=== PATIENT | female | born 1965 | race Caucasian/White ===

== ENCOUNTER 2017-12-22 08:07 | Inpatient (IN) | payer MEDICARE, MEDICAID ==
[2017-12-22] MEDS ORDERED: LORAZEPAM INJ 2 MG/1 ML VIAL IV ONE ×2 (08:27→13:47)
[2017-12-22] MEDS ORDERED: NORMAL SALINE 1000 ML 1,000 ML IV ONE (08:29)
[2017-12-22 08:53] LABS: ABSOLUTE MONOCYTES (AUTO) 0.4 10^3/uL (0.1-1.4); ABSOLUTE NEUT (AUTO) 11.3 10^3/uL (1.7-8.2); BASOPHILS % (AUTO) 0.2 % (0-2); HEMATOCRIT 35.5 % (36.0-47.0); HEMOGLOBIN 12.2 g/dL (12.0-15.5); MEAN CORPUSCULAR HEMOGLOBIN 38.2 pg (27.0-33.4); MEAN CORPUSCULAR HGB CONC 34.4 g/dL (32.0-36.0); PLATELET COUNT 170 10^3/uL (150-450); RED BLOOD COUNT 3.19 10^6/uL (3.72-5.28); RED CELL DISTRIBUTION WIDTH 16.1 % (11.5-14.0); SEGMENTED NEUTROPHILS % (AUTO) 88.8 % (42-78); TOTAL CELLS COUNTED % (AUTO) 100 %; WHITE BLOOD COUNT 12.7 10^3/uL (4.0-10.5)
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
[2017-12-22 09:02] LABS: MEAN CORPUSCULAR VOLUME 111 fl (80-97)
[2017-12-22 09:13] LABS: ANISOCYTOSIS 1+; OVALOCYTES 2+; PLATELET COMMENT ADEQUATE; POIKILOCYTOSIS 2+; POLYCHROMASIA 1+; TOXIC GRANULATION SLIGHT
[2017-12-22 09:33] LABS: ALANINE AMINOTRANSFERASE 18 U/L (9-52); ALBUMIN 4.6 g/dL (3.5-5.0); ALKALINE PHOSPHATASE 95 U/L (38-126); ASPARTATE AMINO TRANSFERASE 31 U/L (14-36); BILIRUBIN,DIRECT 0.9 mg/dL (0.0-0.4); BILIRUBIN,TOTAL 1.4 mg/dL (0.2-1.3); BLOOD UREA NITROGEN 23 mg/dL (7-20); CALCIUM 9.7 mg/dL (8.4-10.2); CARBON DIOXIDE 22 mmol/L (22-30); CHLORIDE 95 mmol/L (98-107); GLUCOSE 91 mg/dL (75-110); POTASSIUM 4.2 mmol/L (3.6-5.0); TOTAL PROTEIN 7.9 g/dL (6.3-8.2)
[2017-12-22 09:36] LABS: ACETAMINOPHEN < 10 ug/mL (10-30); ALCOHOL < 10 mg/dL (NONE DETECTED); SALICYLATE < 1.0 mg/dL (2.0-20.0)
[2017-12-22 09:39] LABS: ANION GAP 21 (5-19)
--- NOTE | 2017-12-22 09:43 | RADIOLOGY REPORT (SQ) ---
EXAM DESCRIPTION: CHEST SINGLE VIEW COMPLETED DATE/TIME: 12/22/2017 9:34 am REASON FOR STUDY: cough COMPARISON: None. EXAM PARAMETERS: NUMBER OF VIEWS: One view. TECHNIQUE: Single frontal radiographic view of the chest acquired. RADIATION DOSE: NA LIMITATIONS: None. FINDINGS: LUNGS AND PLEURA: No opacities, masses or pneumothorax. No pleural effusion. MEDIASTINUM AND HILAR STRUCTURES: No masses. Contour normal. HEART AND VASCULAR STRUCTURES: Heart normal in size. Normal vasculature. BONES: No acute findings. HARDWARE: None in the chest. OTHER: No other significant finding. IMPRESSION: NO ACUTE RADIOGRAPHIC FINDING IN THE CHEST. TECHNICAL DOCUMENTATION: JOB ID: [id number]- All Rights Reserved Reading location - IP/workstation name: [email or web address]
[2017-12-22] MEDS: NORMAL SALINE 1000 ML 1,000 ML IV PRN ×2 (11:25→12:57)
[2017-12-22 12:41] LABS: PATH REVIEW PATHOLOGIST REVIEWED
[2017-12-22] MEDS ORDERED: HALOPERIDOL LACTATE INJ 5 MG/1 ML VIAL IV ONE (13:48)
[2017-12-22] MEDS ORDERED: DIAZEPAM INJ 10 MG/2 ML DISP.SYRIN IV ONE (14:20)
--- NOTE | 2017-12-22 15:32 | EKG REPORT ---
SEVERITY:- BORDERLINE ECG - SINUS TACHYCARDIA BORDERLINE T ABNORMALITIES, INFERIOR LEADS BORDERLINE PROLONGED QT INTERVAL : Confirmed by: Melita Garcia MD 22-Dec-2017 15:31:50
[2017-12-22] MEDS ORDERED: ALBUTEROL SULFATE 0.083% NEB 2.5 MG/3 ML AMPUL NEB PRN (17:06)
[2017-12-22] MEDS ORDERED: HALOPERIDOL LACTATE INJ 5 MG/1 ML VIAL IV PRN (17:17)
[2017-12-22] MEDS: NORMAL SALINE 1000 ML 1,000 ML with POTASSIUM CHLORIDE 20 MEQ, MAGNESIUM SULFATE 8 MEQ,... IV SCH ×5 (17:45)
[2017-12-22] MEDS: LORAZEPAM INJ 2 MG/1 ML VIAL IV PRN (17:47)
--- NOTE | 2017-12-22 18:04 | PSYCHOLOGICAL NOTE ---
Psych Note - Psych Note Psych Note: Chart review at 1111. Went to attempt IPAD tele-consult at 1450 but patient sedated from Valium 10MG that had recently been administered to address psychosis. Reason for Consult: Confusion, A/V Hallucinations, Paranoia, tearful Contact Permissions: None at this time. Patient is a 52 year old female who presented to the ED today via EMS after LE involvement for mental health evaluation due to history of Depression/Anxiety ( confused, A/V hallucinations, paranoia, tearful). Chart review revealed many of her labs (both hematology and chemistry) were off/ all over the range of low to high. She was administered Sodium Chloride and Ativan 2MG IV at 0840. She was last seen by the [facility] Behavioral Health team on 03/28/16 for psychiatric problem. During that visit patient described herself having "a temper tantrum" after finding out her was cheating on her for 14 years with a woman when she had thought it was with a man. She had known for a couple weeks and then drank alcohol the night before this March 2016 visit. She was diagnosed with Alcohol Intoxication (her Serum Alcohol Level upon arrival to ED during that visit was 279) at that time and nothing else due to not enough information to diagnosis anything else. Today [facility] Behavioral Health Team Leak Hunter spoke to attending ED Physician who requested IVC and identified patient was being admitted due to not knowing if her presenting behavior is a result of psychosis/galilea or DTs from alcohol withdrawal. He noted patient was able to have a conversation and interact with him however she was carrying on a conversation with someone who was not in the room. At 1450 went to conduct evaluation with patient however she was sedated as a result of Valium 10MG administration to address psychosis and help patient to rest. Serum Alcohol Level for this visit was negative which could indicate withdrawal. There is limited history so unsure about alcohol use. Diagnosis: 298.9 (F29) Unspecified Schizophrenia Spectrum and Other Psychotic Disorder ( unspecified psychosis) R/O 291.0 (F10.232) Alcohol Withdrawal, With Perceptual Disturbances Medication recommendations made by the psychiatric medical provider, Dr. Emilio MD., includes: Effexor 37.5MG twice a day for depression/anxiety/curb desire for alcohol Haldol 5MG twice a day for psychosis Cogentin 1MG daily to curb tremor side effects often associated with antipsychotic medications Depakote 250MG twice a day for mood stabilization Buspar 10MG twice a day for depression/anxiety/sleep Impression/Plan: Per attending ED Physician IVC patient given unsure if patient has psychosis/galilea as symptom of MH disorder or if it is related to DTs from alcohol withdrawal. Either way she has AMS which inhibits her insight, judgment and impulse control. Behavioral Health thinks more the latter scenario. Medications have been recommended to address alcohol withdrawal and DTs. Will track (via chart review and/or discussion with attending medical staff while patient is in psychosis, will do [id number] with patient when the psychosis clears) patient given she is an IVC. Consulted with Dr. Tinoco regarding the management and care of patient. ED Physician in agreement with recommendations.
[2017-12-23] MEDS: HEPARIN SOD (PORCINE) 5,000 UNIT/ML 1 ML SYRINGE SUBCUT SCH ×2 (00:26→06:36)
[2017-12-23] MEDS: DEXTROSE 5%-LACTATED RINGERS 1,000 ML IV PRN ×2 (04:23→15:00)
[2017-12-23 06:02] LABS: ABSOLUTE LYMPHOCYTES (AUTO) 1.5 10^3/uL (0.5-4.7); ABSOLUTE MONOCYTES (AUTO) 0.2 10^3/uL (0.1-1.4); ABSOLUTE NEUT (AUTO) 2.6 10^3/uL (1.7-8.2); BASOPHILS % (AUTO) 0.6 % (0-2); EOSINOPHILS % (AUTO) 1.1 % (0-6); INTERNATIONAL RATION (INR) 1.01; LYMPHOCYTES % (AUTO) 33.9 % (13-45); MEAN CORPUSCULAR HEMOGLOBIN 38.8 pg (27.0-33.4); MEAN CORPUSCULAR VOLUME 111 fl (80-97); MONOCYTES % (AUTO) 4.7 % (3-13); PROTHROMBIN TIME 13.8 SEC (11.4-15.4); RED BLOOD COUNT 2.44 10^6/uL (3.72-5.28); RED CELL DISTRIBUTION WIDTH 15.9 % (11.5-14.0); SEGMENTED NEUTROPHILS % (AUTO) 59.7 % (42-78); TOTAL CELLS COUNTED % (AUTO) 100 %; WHITE BLOOD COUNT 4.3 10^3/uL (4.0-10.5)
[2017-12-23 06:23] LABS: HEMOGLOBIN 9.5 g/dL (12.0-15.5)
[2017-12-23 06:25] LABS: ANISOCYTOSIS SLIGHT
[2017-12-23 06:26] LABS: PLATELET COUNT 90 10^3/uL (150-450)
[2017-12-23 06:28] LABS: PLATELET COMMENT DECREASED
[2017-12-23 06:29] LABS: ALANINE AMINOTRANSFERASE 21 U/L (9-52); ALBUMIN 2.8 g/dL (3.5-5.0); ALKALINE PHOSPHATASE 57 U/L (38-126); ANION GAP 9 (5-19); ASPARTATE AMINO TRANSFERASE 25 U/L (14-36); BILIRUBIN,DIRECT 0.6 mg/dL (0.0-0.4); BILIRUBIN,TOTAL 0.6 mg/dL (0.2-1.3); BLOOD UREA NITROGEN 18 mg/dL (7-20); CALCIUM 7.9 mg/dL (8.4-10.2); CARBON DIOXIDE 23 mmol/L (22-30); CHLORIDE 107 mmol/L (98-107); GLUCOSE 86 mg/dL (75-110); SODIUM 138.5 mmol/L (137-145); TOTAL PROTEIN 5.3 g/dL (6.3-8.2)
[2017-12-23] MEDS: LANSOPRAZOLE 30 MG TAB.RAP.DR PO SCH ×2 (06:36→17:39)
[2017-12-23] MEDS: LORAZEPAM INJ 2 MG/1 ML VIAL IV PRN (09:47)
[2017-12-23] MEDS: POTASSI CL 20 MEQ/50 ML RIDER 20 MEQ/50 ML RTUPB IV SCH ×3 (09:48→15:00)
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
[2017-12-23] MEDS: ACETAMINOPHEN 325 MG TABLET PO PRN (11:39)
[2017-12-23 14:04] LABS: FREE T3 3.24 pg/mL (2.77-5.27); FREE T4 (FREE THYROXINE) 1.39 ng/dL (0.78-2.19)
[2017-12-23 14:18] LABS: THYROID STIMULATING HORMONE 1.22 uIU/mL (0.47-4.68)
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
--- NOTE | 2017-12-23 17:14 | PDOC PROGRESS REPORT ---
Subjective Progress Note for:: 12/23/17 Subjective:: Although the patient is somewhat more calm, she continues to resist my examination, but then she falls back to sleep. Reason For Visit: ETOH WITHDRAWAL,AND DELIRIUM,NICKOLAS Physical Exam Vital Signs: Temp Pulse Resp BP Pulse Ox 98.6 F 101 H 15 134/84 H 96 12/23/17 01:03 12/23/17 14:00 12/23/17 01:03 12/23/17 01:03 12/23/17 01:03 Intake & Output 12/22/17 12/23/17 12/24/17 06:59 06:59 06:59 Intake Total 2022 1080 Balance 2022 1080 Weight 60.4 kg General appearance: PRESENT: mild distress, thin Head exam: PRESENT: atraumatic, normocephalic Neck exam: ABSENT: JVD, meningismus, thyromegaly, tracheal deviation Respiratory exam: PRESENT: other - No increased work of breathing.. ABSENT: rales, rhonchi, wheezes Cardiovascular exam: PRESENT: RRR, other - No lateral PMI. No thrills.. ABSENT : gallop, rubs, systolic murmur Pulses: PRESENT: other - Diminished distal pulses. GI/Abdominal exam: PRESENT: normal bowel sounds, soft. ABSENT: distended, hernia, mass, organolmegaly, tenderness Extremities exam: ABSENT: clubbing, full ROM, tenderness Musculoskeletal exam: PRESENT: normal inspection. ABSENT: deformity, dislocation, tenderness Neurological exam: PRESENT: other - Not verbally interactive. Does not follow commands. Resists examination. Psychiatric exam: PRESENT: agitated, anxious Skin exam: PRESENT: dry, intact, warm Results Laboratory Results: 12/23/17 05:39 12/23/17 05:39 12/23/17 12/23/17 12/23/17 05:39 05:39 05:39 WBC 4.3 RBC 2.44 L Hgb 9.5 L D Hct 27.0 L MCV 111 H MCH 38.8 H MCHC 35.0 RDW 15.9 H Plt Count 90 L Seg Neutrophils % 59.7 Lymphocytes % 33.9 Monocytes % 4.7 Eosinophils % 1.1 Basophils % 0.6 Absolute Neutrophils 2.6 Absolute Lymphocytes 1.5 Absolute Monocytes 0.2 Absolute Eosinophils 0.0 Absolute Basophils 0.0 Sodium 138.5 Potassium 3.0 L* D Chloride 107 Carbon Dioxide 23 Anion Gap 9 BUN 18 Creatinine 1.23 Est GFR ( Amer) 56 L Est GFR (Non-Af Amer) 46 L Glucose 86 Calcium 7.9 L Phosphorus 3.0 Magnesium 1.5 L Total Bilirubin 0.6 AST 25 ALT 21 Alkaline Phosphatase 57 Total Protein 5.3 L Albumin 2.8 L TSH 1.22 Free T4 1.39 Free T3 pg/mL 3.24 12/22/17 12/22/17 12/23/17 17:30 23:37 05:39 Troponin I < 0.012 < 0.012 < 0.012 12/22/17 12/22/17 12/22/17 08:25 08:25 08:25 WBC 12.7 H RBC 3.19 L Hgb 12.2 Hct 35.5 L MCV 111 H MCH 38.2 H MCHC 34.4 RDW 16.1 H Plt Count 170 Seg Neutrophils % 88.8 H Lymphocytes % 8.0 L Monocytes % 3.0 Eosinophils % 0.0 Basophils % 0.2 Absolute Neutrophils 11.3 H Absolute Lymphocytes 1.0 Absolute Monocytes 0.4 Absolute Eosinophils 0.0 Absolute Basophils 0.0 Toxic Granulation SLIGHT Platelet Comment ADEQUATE Polychromasia 1+ Poikilocytosis 2+ Anisocytosis 1+ Macrocytosis 2+ Ovalocytes 2+ Sodium 138.0 Potassium 4.2 Chloride 95 L Carbon Dioxide 22 Anion Gap 21 H BUN 23 H Creatinine 2.90 H Est GFR ( Amer) 21 L Est GFR (Non-Af Amer) 17 L Glucose 91 Calcium 9.7 Phosphorus Magnesium Total Bilirubin 1.4 H Direct Bilirubin 0.9 H AST 31 ALT 18 Alkaline Phosphatase 95 Creatine Kinase 174 H Troponin I Total Protein 7.9 Albumin 4.6 Salicylates < 1.0 L Acetaminophen < 10 L Serum Alcohol < 10 12/22/17 12/22/17 12/22/17 08:25 17:30 23:37 WBC RBC Hgb Hct MCV MCH MCHC RDW Plt Count Seg Neutrophils % Lymphocytes % Monocytes % Eosinophils % Basophils % Absolute Neutrophils Absolute Lymphocytes Absolute Monocytes Absolute Eosinophils Absolute Basophils Toxic Granulation Platelet Comment Polychromasia Poikilocytosis Anisocytosis Macrocytosis Ovalocytes Sodium Potassium Chloride Carbon Dioxide Anion Gap BUN Creatinine Est GFR ( Amer) Est GFR (Non-Af Amer) Glucose Calcium Phosphorus Magnesium Total Bilirubin Direct Bilirubin AST ALT Alkaline Phosphatase Creatine Kinase Troponin I < 0.012 < 0.012 < 0.012 Total Protein Albumin Salicylates Acetaminophen Serum Alcohol 12/23/17 12/23/17 12/23/17 05:39 05:39 05:39 WBC 4.3 RBC 2.44 L Hgb 9.5 L D Hct 27.0 L MCV 111 H MCH 38.8 H MCHC 35.0 RDW 15.9 H Plt Count 90 L Seg Neutrophils % 59.7 Lymphocytes % 33.9 Monocytes % 4.7 Eosinophils % 1.1 Basophils % 0.6 Absolute Neutrophils 2.6 Absolute Lymphocytes 1.5 Absolute Monocytes 0.2 Absolute Eosinophils 0.0 Absolute Basophils 0.0 Toxic Granulation Platelet Comment DECREASED Polychromasia Poikilocytosis Anisocytosis SLIGHT Macrocytosis 3+ Ovalocytes Sodium 138.5 Potassium 3.0 L* D Chloride 107 Carbon Dioxide 23 Anion Gap 9 BUN 18 Creatinine 1.23 Est GFR ( Amer) 56 L Est GFR (Non-Af Amer) 46 L Glucose 86 Calcium 7.9 L Phosphorus 3.0 Magnesium 1.5 L Total Bilirubin 0.6 Direct Bilirubin 0.6 H AST 25 ALT 21 Alkaline Phosphatase 57 Creatine Kinase Troponin I < 0.012 Total Protein 5.3 L Albumin 2.8 L Salicylates Acetaminophen Serum Alcohol Impressions: Chest X-Ray 12/22/17 08:27 IMPRESSION: NO ACUTE RADIOGRAPHIC FINDING IN THE CHEST. Assessment & Plan - Diagnosis (1) Psychosis Qualifiers: Psychosis type: delusional disorder Qualified Code(s): F22 - Delusional disorders Is this a current diagnosis for this admission?: Yes Plan: Mental health consult recommends initiation of Effexor, Haldol, Cogentin, Depakote and buspar. (2) Manic depressive disease manic phase Is this a current diagnosis for this admission?: Yes Plan: Mental health consult recommends initiation of Effexor, Haldol, Cogentin, Depakote and buspar. (3) Alcohol withdrawal delirium Is this a current diagnosis for this admission?: Yes Plan: CIWA protocol. Ativan prn. Antipsychotics. (4) NICKOLAS (acute kidney injury) Is this a current diagnosis for this admission?: Yes Plan: IV fluids, continue to monitor creatinine and electrolytes. Avoid nephrotoxic substances.
[2017-12-23] MEDS: BUSPIRONE HCL 10 MG TABLET PO SCH (17:39)
[2017-12-23] MEDS: NICOTINE 14 MG/24 HR PATCH.TD24 TD SCH (17:39)
[2017-12-23] MEDS: NORMAL SALINE 1000 ML 1,000 ML with POTASSIUM CHLORIDE 20 MEQ, MAGNESIUM SULFATE 8 MEQ,... IV SCH ×5 (17:39)
[2017-12-23 20:09] LABS: APPEARANCE,URINE SLIGHTLY-CLOUDY; BILIRUBIN,URINE NEGATIVE (NEGATIVE); COLOR,URINE YELLOW; GLUCOSE, URINE NEGATIVE (NEGATIVE); KETONES,URINE TRACE mg/dL (NEGATIVE); LEUKOCYTE ESTERASE,URINE LARGE (NEGATIVE); NITRITE,URINE POSITIVE (NEGATIVE); PROTEIN,URINE NEGATIVE (NEGATIVE); URINE SPECIFIC GRAVITY 1.016
[2017-12-23 20:21] LABS: URINE AMPHETAMINES SCREEN NEGATIVE; URINE BARBITURATES SCREEN NEGATIVE; URINE COCAINE SCREEN NEGATIVE; URINE MARIJUANA (THC) SCREEN NEGATIVE; URINE METHADONE SCREEN NEGATIVE; URINE PHENCYCLIDINE SCREEN NEGATIVE
[2017-12-23 20:26] LABS: URINE BENZODIAZEPINES SCREEN UNCONFIRMED POSITIVE
[2017-12-23] MEDS: BENZTROPINE MESYLATE 1 MG TABLET PO SCH (22:38)
[2017-12-23] MEDS: DIVALPROEX SODIUM 250 MG TAB.SR.24H PO SCH (22:38)
[2017-12-23] MEDS: HALOPERIDOL 5 MG TABLET PO SCH (22:38)
[2017-12-23] MEDS: VENLAFAXINE HCL 37.5 MG CAP.SR.24H PO SCH (22:38)
[2017-12-24] MEDS: LANSOPRAZOLE 30 MG TAB.RAP.DR PO SCH ×2 (05:47→17:44)
[2017-12-24] MEDS: DEXTROSE 5%-LACTATED RINGERS 1,000 ML IV PRN (05:51)
[2017-12-24] MEDS: HALOPERIDOL 5 MG TABLET PO SCH ×2 (09:29→21:24)
[2017-12-24] MEDS: BUSPIRONE HCL 10 MG TABLET PO SCH ×2 (09:29→21:24)
[2017-12-24] MEDS: NICOTINE 14 MG/24 HR PATCH.TD24 TD SCH (09:29)
[2017-12-24] MEDS: DIVALPROEX SODIUM 250 MG TAB.SR.24H PO SCH ×2 (09:29→21:24)
[2017-12-24] MEDS: VENLAFAXINE HCL 37.5 MG CAP.SR.24H PO SCH ×2 (09:29→21:24)
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
--- NOTE | 2017-12-24 15:27 | PDOC PROGRESS REPORT ---
Subjective Progress Note for:: 12/24/17 Subjective:: The patient is awake and alert. She is extremely cheerful today. Reason For Visit: ETOH WITHDRAWAL,AND DELIRIUM,NICKOLAS Physical Exam Vital Signs: Temp Pulse Resp BP Pulse Ox 98.7 F 99 16 101/66 97 12/24/17 11:25 12/24/17 14:00 12/24/17 13:20 12/24/17 11:25 12/24/17 13:20 Intake & Output 12/23/17 12/24/17 12/25/17 06:59 06:59 06:59 Intake Total 2022 2820 1023 Balance 2022 2820 1023 Weight 60.4 kg 62.4 kg General appearance: PRESENT: no acute distress, cooperative Respiratory exam: PRESENT: other - No increased work of breathing.. ABSENT: rales, rhonchi, wheezes Cardiovascular exam: PRESENT: RRR. ABSENT: gallop, rubs, systolic murmur Pulses: PRESENT: other - Distal pulses are diminished bilaterally. GI/Abdominal exam: PRESENT: normal bowel sounds, soft. ABSENT: distended, hernia, mass, organolmegaly, tenderness Extremities exam: PRESENT: clubbing, pedal edema. ABSENT: tenderness, +1 edema Musculoskeletal exam: PRESENT: normal inspection Neurological exam: PRESENT: alert, awake, oriented to person, oriented to place , oriented to time, oriented to situation, CN II-XII grossly intact Skin exam: PRESENT: dry, intact, warm Results Laboratory Results: 12/23/17 05:39 12/23/17 05:39 12/23/17 19:12 Urine Color YELLOW Urine Appearance SLIGHTLY-CLOUDY Urine pH 6.0 Ur Specific Amigo 1.016 Urine Protein NEGATIVE Urine Glucose (UA) NEGATIVE Urine Ketones TRACE H Urine Blood NEGATIVE Urine Nitrite POSITIVE H Ur Leukocyte Esterase LARGE H Urine WBC (Auto) 181 Urine RBC (Auto) 3 12/22/17 12/22/17 12/23/17 17:30 23:37 05:39 Troponin I < 0.012 < 0.012 < 0.012 Impressions: Chest X-Ray 12/22/17 08:27 IMPRESSION: NO ACUTE RADIOGRAPHIC FINDING IN THE CHEST. Assessment & Plan - Diagnosis (1) Psychosis Qualifiers: Psychosis type: delusional disorder Qualified Code(s): F22 - Delusional disorders Is this a current diagnosis for this admission?: Yes Plan: Mental health consult recommends initiation of Effexor, Haldol, Cogentin, Depakote and buspar. pt is more alert and in better spirits today, but remains delusional. (2) Manic depressive disease manic phase Is this a current diagnosis for this admission?: Yes Plan: Mental health consult recommends initiation of Effexor, Haldol, Cogentin, Depakote and buspar. The patient is in better spirits today, but remains delusional. (3) Alcohol withdrawal delirium Is this a current diagnosis for this admission?: Yes Plan: CIWA protocol. Ativan prn. Antipsychotics. (4) NICKOLAS (acute kidney injury) Is this a current diagnosis for this admission?: Yes Plan: IV fluids, continue to monitor creatinine and electrolytes. Avoid nephrotoxic substances. - Time Time Spent with patient: 25-34 minutes Medications reviewed and adjusted accordingly: Yes
[2017-12-24] MEDS: NORMAL SALINE 1000 ML 1,000 ML with POTASSIUM CHLORIDE 20 MEQ, MAGNESIUM SULFATE 8 MEQ,... IV SCH ×5 (17:44)
[2017-12-24] MEDS: BENZTROPINE MESYLATE 1 MG TABLET PO SCH (21:24)
[2017-12-24] MEDS: ACETAMINOPHEN 325 MG TABLET PO PRN (21:25)
[2017-12-25] MEDS: LANSOPRAZOLE 30 MG TAB.RAP.DR PO SCH ×2 (05:42→18:48)
[2017-12-25] MEDS: DEXTROSE 5%-LACTATED RINGERS 1,000 ML IV PRN ×2 (05:43→12:48)
[2017-12-25] MEDS: DIVALPROEX SODIUM 250 MG TAB.SR.24H PO SCH ×2 (09:36→21:56)
[2017-12-25] MEDS: BUSPIRONE HCL 10 MG TABLET PO SCH ×2 (09:36→21:55)
[2017-12-25] MEDS: NICOTINE 14 MG/24 HR PATCH.TD24 TD SCH (09:36)
[2017-12-25] MEDS: VENLAFAXINE HCL 37.5 MG CAP.SR.24H PO SCH ×2 (09:36→21:56)
[2017-12-25] MEDS: HALOPERIDOL 5 MG TABLET PO SCH ×2 (09:36→21:57)
--- NOTE | 2017-12-25 11:38 | PDOC PROGRESS REPORT ---
Subjective Progress Note for:: 12/25/17 Subjective:: Patient admitted with alcohol withdrawal, delirium as well as acute kidney injury. She is still me she is feeling better and ready to be discharged. She however has been seen by mental health and she is currently under involuntary commitment. She has been started on a bunch of antipsychotics and from all indications her mood seemed to have improved. Reason For Visit: ETOH WITHDRAWAL,AND DELIRIUM,NICKOLAS Physical Exam Vital Signs: Temp Pulse Resp BP Pulse Ox 98.4 F 79 18 133/86 H 98 12/25/17 07:50 12/25/17 07:50 12/25/17 07:50 12/25/17 07:50 12/25/17 07:50 Intake & Output 12/24/17 12/25/17 12/26/17 06:59 06:59 06:59 Intake Total 2820 2407 1023 Balance 2820 2407 1023 Weight 62.4 kg 65.9 kg General appearance: PRESENT: no acute distress, well-developed, well-nourished Head exam: PRESENT: atraumatic, normocephalic Eye exam: PRESENT: conjunctiva pink, EOMI, PERRLA. ABSENT: scleral icterus Ear exam: PRESENT: normal external ear exam Mouth exam: PRESENT: moist, tongue midline Neck exam: ABSENT: carotid bruit, JVD, lymphadenopathy, thyromegaly Respiratory exam: PRESENT: clear to auscultation americo. ABSENT: rales, rhonchi, wheezes Cardiovascular exam: PRESENT: RRR. ABSENT: diastolic murmur, rubs, systolic murmur Pulses: PRESENT: normal dorsalis pedis pul Vascular exam: PRESENT: normal capillary refill GI/Abdominal exam: PRESENT: normal bowel sounds, soft. ABSENT: distended, guarding, mass, organolmegaly, rebound, tenderness Rectal exam: PRESENT: deferred Extremities exam: PRESENT: full ROM. ABSENT: calf tenderness, clubbing, pedal edema Neurological exam: PRESENT: alert, awake, oriented to person, oriented to place , oriented to time, oriented to situation, CN II-XII grossly intact. ABSENT: motor sensory deficit Psychiatric exam: PRESENT: appropriate affect, normal mood Skin exam: PRESENT: dry, intact, warm. ABSENT: cyanosis, rash Results Laboratory Results: 12/23/17 05:39 12/23/17 05:39 12/22/17 12/22/17 12/23/17 17:30 23:37 05:39 Troponin I < 0.012 < 0.012 < 0.012 Impressions: Chest X-Ray 12/22/17 08:27 IMPRESSION: NO ACUTE RADIOGRAPHIC FINDING IN THE CHEST. Assessment & Plan - Time Time Spent with patient: 15-24 minutes Medications reviewed and adjusted accordingly: Yes Anticipated discharge: Other - To be determined - Plan Summary Plan Summary: Psychosis patient is alert and awake at the time of my exam but remains under involuntary commitment. Will have psych follow-up reevaluate and decide on further management. 2. Manic phase of manic depressive disorder. Patient is currently on Effexor, Haldol, Cogentin, Depakote and BuSpar. 3. Alcohol withdrawal delirium and sella protocol 4. Acute kidney injury this is resolved 5. Hypokalemia and high poor magnesium air I will recheck labs and treat as needed 6. 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 Will check B12, folic acid as well as iron stores. Looking back at the computer records it appears patient's baseline hemoglobin even back in 2010 was around 9. She will need outpatient follow-up for further evaluation
[2017-12-25] MEDS: ACETAMINOPHEN 325 MG TABLET PO PRN ×2 (14:01→21:56)
[2017-12-25 16:08] LABS: ABSOLUTE LYMPHOCYTES (AUTO) 1.1 10^3/uL (0.5-4.7); ABSOLUTE MONOCYTES (AUTO) 0.3 10^3/uL (0.1-1.4); ABSOLUTE NEUT (AUTO) 2.7 10^3/uL (1.7-8.2); BASOPHILS % (AUTO) 0.5 % (0-2); EOSINOPHILS % (AUTO) 1.2 % (0-6); HEMATOCRIT 28.1 % (36.0-47.0); HEMOGLOBIN 9.8 g/dL (12.0-15.5); LYMPHOCYTES % (AUTO) 25.8 % (13-45); MEAN CORPUSCULAR HEMOGLOBIN 38.6 pg (27.0-33.4); MEAN CORPUSCULAR HGB CONC 34.8 g/dL (32.0-36.0); MEAN CORPUSCULAR VOLUME 111 fl (80-97); MONOCYTES % (AUTO) 7.8 % (3-13); PLATELET COUNT 117 10^3/uL (150-450); RED BLOOD COUNT 2.53 10^6/uL (3.72-5.28); RED CELL DISTRIBUTION WIDTH 16.4 % (11.5-14.0); SEGMENTED NEUTROPHILS % (AUTO) 64.7 % (42-78); TOTAL CELLS COUNTED % (AUTO) 100 %; WHITE BLOOD COUNT 4.1 10^3/uL (4.0-10.5)
[2017-12-25 16:23] LABS: ANION GAP 5 (5-19); BLOOD UREA NITROGEN 8 mg/dL (7-20); CALCIUM 8.3 mg/dL (8.4-10.2); CARBON DIOXIDE 24 mmol/L (22-30); CHLORIDE 110 mmol/L (98-107); GLUCOSE 96 mg/dL (75-110); SODIUM 139.1 mmol/L (137-145)
[2017-12-25 16:38] LABS: ANISOCYTOSIS 1+; PLATELET COMMENT DECREASED; TOXIC GRANULATION SLIGHT
[2017-12-25] MEDS: BENZTROPINE MESYLATE 1 MG TABLET PO SCH (21:56)
[2017-12-26] MEDS: LANSOPRAZOLE 30 MG TAB.RAP.DR PO SCH ×2 (05:42→17:30)
[2017-12-26] MEDS: DIVALPROEX SODIUM 250 MG TAB.SR.24H PO SCH ×2 (09:19→21:39)
[2017-12-26] MEDS: BUSPIRONE HCL 10 MG TABLET PO SCH ×2 (09:19→21:39)
[2017-12-26] MEDS: THIAMINE HCL 100 MG TABLET PO SCH (09:19)
[2017-12-26] MEDS: CYANOCOBALAMIN (VITAMIN B-12) 1,000 MCG TABLET PO SCH (09:19)
[2017-12-26] MEDS: FOLIC ACID 1 MG TABLET PO SCH (09:19)
[2017-12-26] MEDS: HALOPERIDOL 5 MG TABLET PO SCH ×2 (09:20→21:40)
[2017-12-26] MEDS: NICOTINE 14 MG/24 HR PATCH.TD24 TD SCH (09:20)
[2017-12-26] MEDS: VENLAFAXINE HCL 37.5 MG CAP.SR.24H PO SCH ×2 (09:21→21:41)
--- NOTE | 2017-12-26 14:44 | PDOC PROGRESS REPORT ---
Subjective Progress Note for:: 12/26/17 Subjective:: Patient admitted with alcohol withdrawal, delirium as well as acute kidney injury. She is still me she is feeling better and ready to be discharged. She however has been seen by mental health and she is currently under involuntary commitment. She has been started on a bunch of antipsychotics and from all indications her mood seemed to have improved. I called down to the mental health today and requested that patient be reevaluated to rescind IVC if appropriate and I was told she will be seen sometime today. Reason For Visit: ETOH WITHDRAWAL,AND DELIRIUM,NICKOLAS Physical Exam Vital Signs: Temp Pulse Resp BP Pulse Ox 98.8 F 91 17 133/88 H 97 12/26/17 11:28 12/26/17 11:28 12/26/17 11:28 12/26/17 11:28 12/26/17 11:28 Intake & Output 12/25/17 12/26/17 12/27/17 06:59 06:59 06:59 Intake Total 2407 3953 Balance 2407 3953 Weight 65.9 kg 68.8 kg Results Laboratory Results: 12/25/17 15:45 12/25/17 15:45 12/25/17 12/25/17 15:45 15:45 WBC 4.1 RBC 2.53 L Hgb 9.8 L Hct 28.1 L MCV 111 H MCH 38.6 H MCHC 34.8 RDW 16.4 H Plt Count 117 L Seg Neutrophils % 64.7 Lymphocytes % 25.8 Monocytes % 7.8 Eosinophils % 1.2 Basophils % 0.5 Absolute Neutrophils 2.7 Absolute Lymphocytes 1.1 Absolute Monocytes 0.3 Absolute Eosinophils 0.0 Absolute Basophils 0.0 Sodium 139.1 Potassium 4.0 Chloride 110 H Carbon Dioxide 24 Anion Gap 5 BUN 8 Creatinine 0.75 Est GFR ( Amer) > 60 Est GFR (Non-Af Amer) > 60 Glucose 96 Calcium 8.3 L Magnesium 1.5 L 12/22/17 12/22/17 12/23/17 17:30 23:37 05:39 Troponin I < 0.012 < 0.012 < 0.012 Impressions: Chest X-Ray 12/22/17 08:27 IMPRESSION: NO ACUTE RADIOGRAPHIC FINDING IN THE CHEST. Assessment & Plan - Plan Summary Plan Summary: Psychosis currently awaiting reevaluation as she is still under involuntary commitment. Will have psych follow-up reevaluate and decide on further management. 2. Manic phase of manic depressive disorder. Patient is currently on Effexor, Haldol, Cogentin, Depakote and BuSpar. 3. Alcohol withdrawal delirium and CIWA protocol 4. Acute kidney injury this is resolved 5. Hypokalemia and hypomagnesimia F/u labs and treat as needed 6. 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 Will check B12, folic acid as well as iron stores. Looking back at the computer records it appears patient's baseline hemoglobin even back in 2010 was around 9. She will need outpatient follow-up for further evaluation
[2017-12-26] MEDS: ACETAMINOPHEN 325 MG TABLET PO PRN (14:47)
[2017-12-26] MEDS: MAGNESIUM OXIDE 400 MG TABLET PO SCH (17:30)
[2017-12-26] MEDS: BENZTROPINE MESYLATE 1 MG TABLET PO SCH (21:40)
[2017-12-27] MEDS: ACETAMINOPHEN 325 MG TABLET PO PRN ×3 (00:43→18:49)
[2017-12-27] MEDS: LANSOPRAZOLE 30 MG TAB.RAP.DR PO SCH ×2 (05:27→18:47)
[2017-12-27 05:50] LABS: ABSOLUTE EOSINOPHILS # (AUTO) 0.1 10^3/uL (0.0-0.6); ABSOLUTE LYMPHOCYTES (AUTO) 1.3 10^3/uL (0.5-4.7); ABSOLUTE MONOCYTES (AUTO) 0.5 10^3/uL (0.1-1.4); ABSOLUTE NEUT (AUTO) 2.2 10^3/uL (1.7-8.2); BASOPHILS % (AUTO) 0.8 % (0-2); EOSINOPHILS % (AUTO) 3.2 % (0-6); HEMATOCRIT 28.4 % (36.0-47.0); HEMOGLOBIN 10.1 g/dL (12.0-15.5); LYMPHOCYTES % (AUTO) 30.9 % (13-45); MEAN CORPUSCULAR HEMOGLOBIN 38.8 pg (27.0-33.4); MEAN CORPUSCULAR HGB CONC 35.6 g/dL (32.0-36.0); MEAN CORPUSCULAR VOLUME 109 fl (80-97); MONOCYTES % (AUTO) 12.2 % (3-13); PLATELET COUNT 136 10^3/uL (150-450); RED CELL DISTRIBUTION WIDTH 16.5 % (11.5-14.0); SEGMENTED NEUTROPHILS % (AUTO) 52.9 % (42-78); TOTAL CELLS COUNTED % (AUTO) 100 %; WHITE BLOOD COUNT 4.2 10^3/uL (4.0-10.5)
[2017-12-27 06:16] LABS: BLOOD UREA NITROGEN 10 mg/dL (7-20); GLUCOSE 89 mg/dL (75-110); POTASSIUM 3.6 mmol/L (3.6-5.0)
[2017-12-27 06:21] LABS: CARBON DIOXIDE 26 mmol/L (22-30); CHLORIDE 110 mmol/L (98-107); SODIUM 139.9 mmol/L (137-145)
[2017-12-27 06:26] LABS: ANION GAP 4 (5-19)
[2017-12-27 07:23] LABS: FOLATE 6.85 ng/mL (>2.76)
[2017-12-27] MEDS: CYANOCOBALAMIN (VITAMIN B-12) 1,000 MCG TABLET PO SCH (09:53)
[2017-12-27] MEDS: MAGNESIUM OXIDE 400 MG TABLET PO SCH ×2 (09:53→18:46)
[2017-12-27] MEDS: VENLAFAXINE HCL 37.5 MG CAP.SR.24H PO SCH ×2 (09:54→21:15)
[2017-12-27] MEDS: DIVALPROEX SODIUM 250 MG TAB.SR.24H PO SCH ×2 (09:54→21:17)
[2017-12-27] MEDS: FOLIC ACID 1 MG TABLET PO SCH (09:54)
[2017-12-27] MEDS: BUSPIRONE HCL 10 MG TABLET PO SCH ×2 (09:54→21:14)
[2017-12-27] MEDS: THIAMINE HCL 100 MG TABLET PO SCH (09:54)
[2017-12-27] MEDS: HALOPERIDOL 5 MG TABLET PO SCH ×2 (09:55→21:15)
[2017-12-27] MEDS: NICOTINE 14 MG/24 HR PATCH.TD24 TD SCH (09:58)
--- NOTE | 2017-12-27 15:35 | PDOC PROGRESS REPORT ---
Subjective Progress Note for:: 12/27/17 Subjective:: Patient admitted with alcohol withdrawal, delirium as well as acute kidney injury. She is still me she is feeling better and ready to be discharged. She however has been seen by mental health and she is currently under involuntary commitment. She has been started on a bunch of antipsychotics and from all indications her mood seemed to have improved. Patient seen by behavioral health on December 26 and appears at this time she still on the IVC. Depakote level was found to be low and so we have increased her Depakote today. We will continue to monitor in hospital but patient remains medically stable and we are just waiting for psychiatric clearance for discharge Reason For Visit: ETOH WITHDRAWAL,AND DELIRIUM,NICKOLAS Physical Exam Vital Signs: Temp Pulse Resp BP Pulse Ox 98.6 F 101 H 17 135/94 H 98 12/27/17 11:54 12/27/17 11:54 12/27/17 11:54 12/27/17 11:54 12/27/17 11:54 Intake & Output 12/26/17 12/27/17 12/28/17 06:59 06:59 06:59 Intake Total 3953 1225 Balance 3953 1225 Weight 68.8 kg 63.9 kg General appearance: PRESENT: no acute distress, well-nourished Head exam: PRESENT: atraumatic, normocephalic Eye exam: PRESENT: conjunctiva pink, EOMI, PERRLA. ABSENT: scleral icterus Ear exam: PRESENT: normal external ear exam Mouth exam: PRESENT: moist, tongue midline Neck exam: ABSENT: carotid bruit, JVD, lymphadenopathy, thyromegaly Respiratory exam: PRESENT: clear to auscultation americo. ABSENT: rales, rhonchi, wheezes Cardiovascular exam: PRESENT: RRR. ABSENT: diastolic murmur, rubs, systolic murmur Pulses: PRESENT: normal dorsalis pedis pul Vascular exam: PRESENT: normal capillary refill GI/Abdominal exam: PRESENT: normal bowel sounds, soft. ABSENT: distended, guarding, mass, organolmegaly, rebound, tenderness Rectal exam: PRESENT: deferred Extremities exam: PRESENT: full ROM. ABSENT: calf tenderness, clubbing, pedal edema Neurological exam: PRESENT: alert, awake, oriented to person, oriented to place , oriented to time, oriented to situation, CN II-XII grossly intact. ABSENT: motor sensory deficit Psychiatric exam: PRESENT: anxious, normal mood Skin exam: PRESENT: dry, intact, warm. ABSENT: cyanosis, rash Results Laboratory Results: 12/27/17 05:31 12/27/17 05:31 12/27/17 12/27/17 05:31 05:31 WBC 4.2 RBC 2.60 L Hgb 10.1 L Hct 28.4 L MCV 109 H MCH 38.8 H MCHC 35.6 RDW 16.5 H Plt Count 136 L Seg Neutrophils % 52.9 Lymphocytes % 30.9 Monocytes % 12.2 Eosinophils % 3.2 Basophils % 0.8 Absolute Neutrophils 2.2 Absolute Lymphocytes 1.3 Absolute Monocytes 0.5 Absolute Eosinophils 0.1 Absolute Basophils 0.0 Sodium 139.9 Potassium 3.6 Chloride 110 H Carbon Dioxide 26 Anion Gap 4 L BUN 10 Creatinine 0.71 Est GFR ( Amer) > 60 Est GFR (Non-Af Amer) > 60 Glucose 89 Calcium 9.0 Magnesium 1.6 Iron 45.0 Vitamin B12 253.0 Folate 6.85 12/22/17 12/22/17 12/23/17 17:30 23:37 05:39 Troponin I < 0.012 < 0.012 < 0.012 Impressions: Chest X-Ray 12/22/17 08:27 IMPRESSION: NO ACUTE RADIOGRAPHIC FINDING IN THE CHEST. Assessment & Plan - Time Time Spent with patient: 15-24 minutes Medications reviewed and adjusted accordingly: Yes Anticipated discharge: Home Within: Other - when cleared by psych
[2017-12-27] MEDS: BENZTROPINE MESYLATE 1 MG TABLET PO SCH (21:14)
[2017-12-28] MEDS: ACETAMINOPHEN 325 MG TABLET PO PRN ×2 (02:14→17:21)
[2017-12-28] MEDS: LANSOPRAZOLE 30 MG TAB.RAP.DR PO SCH ×2 (05:37→17:07)
[2017-12-28] MEDS: NICOTINE 14 MG/24 HR PATCH.TD24 TD SCH (10:25)
[2017-12-28] MEDS: DIVALPROEX SODIUM 250 MG TAB.SR.24H PO SCH ×2 (10:26→21:24)
[2017-12-28] MEDS: BUSPIRONE HCL 10 MG TABLET PO SCH ×2 (10:26→21:24)
[2017-12-28] MEDS: FOLIC ACID 1 MG TABLET PO SCH (10:27)
[2017-12-28] MEDS: HALOPERIDOL 5 MG TABLET PO SCH ×2 (10:27→21:23)
[2017-12-28] MEDS: THIAMINE HCL 100 MG TABLET PO SCH (10:27)
[2017-12-28] MEDS: CYANOCOBALAMIN (VITAMIN B-12) 1,000 MCG TABLET PO SCH (10:27)
[2017-12-28] MEDS: VENLAFAXINE HCL 37.5 MG CAP.SR.24H PO SCH ×2 (10:27→21:23)
[2017-12-28] MEDS: MAGNESIUM OXIDE 400 MG TABLET PO SCH ×2 (10:27→17:06)
--- NOTE | 2017-12-28 16:33 | PDOC PROGRESS REPORT ---
Subjective Progress Note for:: 12/28/17 Subjective:: Patient admitted with alcohol withdrawal, delirium as well as acute kidney injury. She is still me she is feeling better and ready to be discharged. She however has been seen by mental health and she is currently under involuntary commitment. She has been started on a bunch of antipsychotics and from all indications her mood seemed to have improved. Patient seen by behavioral health on December 26 and appears at this time she still on the IVC. Depakote level was found to be low and so we have increased her Depakote today. Reason For Visit: ETOH WITHDRAWAL,AND DELIRIUM,NICKOLAS Physical Exam Vital Signs: Temp Pulse Resp BP Pulse Ox 98.5 F 102 H 16 101/72 99 12/28/17 11:06 12/28/17 11:06 12/28/17 11:06 12/28/17 11:06 12/28/17 11:06 Intake & Output 12/27/17 12/28/17 12/29/17 06:59 06:59 06:59 Intake Total 1225 1152 625 Balance 1225 1152 625 Weight 63.9 kg 63 kg General appearance: PRESENT: no acute distress, well-nourished Head exam: PRESENT: atraumatic, normocephalic Eye exam: PRESENT: conjunctiva pink, EOMI, PERRLA. ABSENT: scleral icterus Ear exam: PRESENT: normal external ear exam Mouth exam: PRESENT: moist, tongue midline Neck exam: ABSENT: carotid bruit, JVD, lymphadenopathy, thyromegaly Respiratory exam: PRESENT: clear to auscultation americo. ABSENT: rales, rhonchi, wheezes Cardiovascular exam: PRESENT: RRR. ABSENT: diastolic murmur, rubs, systolic murmur Pulses: PRESENT: normal dorsalis pedis pul Vascular exam: PRESENT: normal capillary refill GI/Abdominal exam: PRESENT: normal bowel sounds, soft. ABSENT: distended, guarding, mass, organolmegaly, rebound, tenderness Rectal exam: PRESENT: deferred Extremities exam: PRESENT: full ROM. ABSENT: calf tenderness, clubbing, pedal edema Neurological exam: PRESENT: alert, awake, oriented to person, oriented to place , oriented to time, oriented to situation, CN II-XII grossly intact. ABSENT: motor sensory deficit Psychiatric exam: PRESENT: appropriate affect, normal mood Skin exam: PRESENT: dry, intact, warm. ABSENT: cyanosis, rash Results Laboratory Results: 12/27/17 05:31 12/27/17 05:31 12/22/17 12/22/17 12/23/17 17:30 23:37 05:39 Troponin I < 0.012 < 0.012 < 0.012 Impressions: Chest X-Ray 12/22/17 08:27 IMPRESSION: NO ACUTE RADIOGRAPHIC FINDING IN THE CHEST. Assessment & Plan - Time Time Spent with patient: 15-24 minutes Medications reviewed and adjusted accordingly: Yes Anticipated discharge: Home Within: within 48 hours - Inpatient Certification Based on my medical assessment, after consideration of the patient's comorbidities, presenting symptoms, or acuity I expect that the services needed warrant INPATIENT care.: Yes Medical Necessity: Need Close Monitoring Due to Risk of Patient Decompensation, Risk of Complication if Not Cared For in Hospital - Plan Summary Plan Summary: Psychosis still under IVC, Depakote level to be checked in am 3. Alcohol withdrawal -resolved 4. Acute kidney injury this is resolved 5. Hypokalemia and hypomagnesimia F/u labs and treat as needed 6. 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 B12, folic acid as well as iron stores are WNL. Looking back at the computer records it appears patient's baseline hemoglobin even back in 2010 was around 9. She will need outpatient follow-up for further evaluation 7. DC home once cleared by Psych
[2017-12-28] MEDS: BENZTROPINE MESYLATE 1 MG TABLET PO SCH (21:23)
[2017-12-29] MEDS: LANSOPRAZOLE 30 MG TAB.RAP.DR PO SCH ×2 (06:18→17:10)
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
--- NOTE | 2017-12-29 06:43 | PSYCHOLOGICAL NOTE ---
Psych Note - Psych Note Psych Note: Reason for Consult: Confusion, A/V Hallucinations, Paranoia, tearful Contact Permissions: Celia, sister, Miah, friend, Patient is a 52 year old female who presented to the ED today via EMS after LE involvement for mental health evaluation due to history of Depression/Anxiety ( confused, A/V hallucinations, paranoia, tearful). Check-in conducted with patient Patient continues to be very pleasant stating that she is "wonderful" and "great." It is noted the patient no longer has pressured speech. Patient discloses that she will continue taking medications and follow-up with outpatient mental health services. Medication recommendations per [facility]'s contracted psychiatrist, Dr. Emilio MD. ,are as follows: Effexor 37.5MG twice a day for depression/anxiety/curb desire for alcohol Haldol 5MG twice a day for psychosis Cogentin 1MG daily to curb tremor side effects often associated with antipsychotic medications Depakote 250MG twice a day for mood stabilization Buspar 10MG twice a day for depression/anxiety/sleep Diagnosis: 298.9 (F29) Unspecified Schizophrenia Spectrum and Other Psychotic Disorder ( unspecified psychosis) R/O 291.0 (F10.232) Alcohol Withdrawal, With Perceptual Disturbances Impression/Plan: Patient is recommended to continue under IVC. Patient has much improved in her presentation. She is no longer demonstrating with pressured speech or hypervigilance. Patient continues to be very pleasant. At this time there is some concern the patient will continue having minor delusions as her baseline. Patient is not therapeutic on her Depakote yet. Patient will be reevaluated. Dr. Tinoco was consulted on the care and management and care of this patient.
[2017-12-29] MEDS: NICOTINE 14 MG/24 HR PATCH.TD24 TD SCH (09:57)
[2017-12-29] MEDS: CYANOCOBALAMIN (VITAMIN B-12) 1,000 MCG TABLET PO SCH (09:58)
[2017-12-29] MEDS: BUSPIRONE HCL 10 MG TABLET PO SCH ×2 (09:58→22:33)
[2017-12-29] MEDS: THIAMINE HCL 100 MG TABLET PO SCH (09:58)
[2017-12-29] MEDS: FOLIC ACID 1 MG TABLET PO SCH (09:58)
[2017-12-29] MEDS: HALOPERIDOL 5 MG TABLET PO SCH ×2 (09:58→22:33)
[2017-12-29] MEDS: MAGNESIUM OXIDE 400 MG TABLET PO SCH ×2 (09:58→17:10)
[2017-12-29] MEDS: DIVALPROEX SODIUM 250 MG TAB.SR.24H PO SCH ×2 (09:58→22:33)
[2017-12-29] MEDS: VENLAFAXINE HCL 37.5 MG CAP.SR.24H PO SCH ×2 (10:40→22:33)
--- NOTE | 2017-12-29 17:53 | PDOC PROGRESS REPORT ---
Subjective Progress Note for:: 12/29/17 Subjective:: Patient remains pleasant and in a good mood she feels that she is getting better and now says she realized that she needed to stay in hospital to get well before she is able to go home. Luckily he had Depakote level is actually within normal. Family is expressing concern about this patient coming home and they will worried that she will revert back to her previous behavioral. Not sure if there is anything we can do once the IVC is rescinded however I will discuss with psych as well as social service to see if there are any options available Reason For Visit: ETOH WITHDRAWAL,AND DELIRIUM,NICKOLAS Physical Exam Vital Signs: Temp Pulse Resp BP Pulse Ox 98.3 F 88 16 99/77 L 98 12/29/17 15:19 12/29/17 15:19 12/29/17 15:19 12/29/17 15:19 12/29/17 15:19 Intake & Output 12/28/17 12/29/17 12/30/17 06:59 06:59 06:59 Intake Total 1152 1510 900 Balance 1152 1510 900 Weight 63 kg 63.5 kg General appearance: PRESENT: no acute distress, well-developed Head exam: PRESENT: atraumatic, normocephalic Eye exam: PRESENT: conjunctiva pink, EOMI, PERRLA. ABSENT: scleral icterus Ear exam: PRESENT: normal external ear exam Mouth exam: PRESENT: moist, tongue midline Neck exam: ABSENT: carotid bruit, JVD, lymphadenopathy, thyromegaly Respiratory exam: PRESENT: clear to auscultation americo. ABSENT: rales, rhonchi, wheezes Cardiovascular exam: PRESENT: RRR. ABSENT: diastolic murmur, rubs, systolic murmur Pulses: PRESENT: normal dorsalis pedis pul Vascular exam: PRESENT: normal capillary refill GI/Abdominal exam: PRESENT: normal bowel sounds, soft. ABSENT: distended, guarding, mass, organolmegaly, rebound, tenderness Rectal exam: PRESENT: deferred Extremities exam: PRESENT: full ROM. ABSENT: calf tenderness, clubbing, pedal edema Neurological exam: PRESENT: alert, awake, oriented to person, oriented to place , oriented to time, oriented to situation, CN II-XII grossly intact. ABSENT: motor sensory deficit Psychiatric exam: PRESENT: appropriate affect, normal mood. ABSENT: homicidal ideation, suicidal ideation Skin exam: PRESENT: dry, intact, warm. ABSENT: cyanosis, rash Results Laboratory Results: 12/27/17 05:31 12/27/17 05:31 12/22/17 12/22/17 12/23/17 17:30 23:37 05:39 Troponin I < 0.012 < 0.012 < 0.012 Impressions: Chest X-Ray 12/22/17 08:27 IMPRESSION: NO ACUTE RADIOGRAPHIC FINDING IN THE CHEST. Assessment & Plan - Time Time Spent with patient: Less than 15 minutes Anticipated discharge: Home Within: within 24 hours - Inpatient Certification Based on my medical assessment, after consideration of the patient's comorbidities, presenting symptoms, or acuity I expect that the services needed warrant INPATIENT care.: Yes Medical Necessity: Need Close Monitoring Due to Risk of Patient Decompensation, Risk of Complication if Not Cared For in Hospital, Risk of Diagnosis Which Will Require Inpatient Eval/Care/Monitoring - Plan Summary Plan Summary: Psychosis still under IVC, Depakote level theurapeutic. We will follow up with psych 3. Alcohol withdrawal -resolved 4. Acute kidney injury this is resolved 5. Hypokalemia and hypomagnesimia -dictated 6. 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 B12, folic acid as well as iron stores are WNL. Looking back at the computer records it appears patient's baseline hemoglobin even back in 2010 was around 9. She will need outpatient follow-up for further evaluation 7. DC home once cleared by Psych hopefully in a.m.
[2017-12-29] MEDS: BENZTROPINE MESYLATE 1 MG TABLET PO SCH (22:33)
[2017-12-30] MEDS: LANSOPRAZOLE 30 MG TAB.RAP.DR PO SCH (05:53)
[2017-12-30] MEDS: VENLAFAXINE HCL 37.5 MG CAP.SR.24H PO SCH (09:48)
[2017-12-30] MEDS: MAGNESIUM OXIDE 400 MG TABLET PO SCH (09:48)
[2017-12-30] MEDS: DIVALPROEX SODIUM 250 MG TAB.SR.24H PO SCH (09:48)
[2017-12-30] MEDS: HALOPERIDOL 5 MG TABLET PO SCH (09:49)
[2017-12-30] MEDS: CYANOCOBALAMIN (VITAMIN B-12) 1,000 MCG TABLET PO SCH (09:49)
[2017-12-30] MEDS: NICOTINE 14 MG/24 HR PATCH.TD24 TD SCH (09:49)
[2017-12-30] MEDS: THIAMINE HCL 100 MG TABLET PO SCH (09:49)
[2017-12-30] MEDS: FOLIC ACID 1 MG TABLET PO SCH (09:49)
[2017-12-30] MEDS: BUSPIRONE HCL 10 MG TABLET PO SCH (09:51)
--- NOTE | 2017-12-30 10:21 | PSYCHOLOGICAL NOTE ---
Psych Note - Psych Note Psych Note: Reason for Consult: Confusion, A/V Hallucinations, Paranoia, tearful Contact Permissions: Celia, sister, Miah, friend, Patient is a 52 year old female who presented to the ED today via EMS after LE involvement for mental health evaluation due to history of Depression/Anxiety ( confused, A/V hallucinations, paranoia, tearful). Check-in conducted with patient Patient is calm and cooperative. There is no pressured speech and patient is no longer hypervigilant. Medication recommendations per [facility]'s contracted psychiatrist, Dr. Emilio MD. ,are as follows: Effexor 37.5MG twice a day for depression/anxiety/curb desire for alcohol Haldol 5MG twice a day for psychosis Cogentin 1MG daily to curb tremor side effects often associated with antipsychotic medications Depakote 250MG twice a day for mood stabilization Buspar 10MG twice a day for depression/anxiety/sleep Diagnosis: 298.9 (F29) Unspecified Schizophrenia Spectrum and Other Psychotic Disorder ( unspecified psychosis) R/O 291.0 (F10.232) Alcohol Withdrawal, With Perceptual Disturbances Impression/Plan: Patient is recommended for rescind of IVC and is cleared from acute psychiatric services. Patient has much improved in her presentation. She is no longer demonstrating with pressured speech or hypervigilance. Patient continues to be very pleasant. At this time there is some concern the patient will continue having minor delusions as her baseline. Patient is now therapeutic on her Depakote and is recommended to follow up with outpatient mental health provider for continued services. Dr. Tinoco was consulted on the care and management and care of this patient.
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
[2017-12-30 14:31] VITALS: BP 138/87
== END 2017-12-30 14:46 | disposition home or self-care (01) | DRG 897 ==
LOC: ER 08:07 → EH 13:15 → 4N 19:55
PROVIDERS: ADMIT Emergency Medicine; ATTEND Emergency Medicine
PROC: 3E0F73Z Introduction of Anti-inflammatory into Respiratory Tract, Via Natural or Artificial Opening (ICD-10-PCS; principal; 2017-12-22)
DX: F10.231 Alcohol dependence with withdrawal delirium (principal); N17.9 Acute kidney failure, unspecified; N39.0 Urinary tract infection, site not specified; F30.2 Manic episode, severe with psychotic symptoms; F10.232 Alcohol dependence with withdrawal with perceptual disturbance; Y90.0 Blood alcohol level of less than 20 mg/100 ml; E83.42 Hypomagnesemia; E87.6 Hypokalemia; E86.0 Dehydration; D64.9 Anemia, unspecified; F17.210 Nicotine dependence, cigarettes, uncomplicated; F41.9 Anxiety disorder, unspecified; Z79.899 Other long term (current) drug therapy
CPT/HCPCS: 36415; 71045; 80048; 80053; 80164; 80307; 81001; 82550; 82607; 82746; 83540; 83735; 84100; 84439; 84443; 84481; 84484; 85025; 85610; 93005; 93010; 96361; 96374; 99285; J1630; J1644; J2060; J3360; J3411; J3475; J3480; J3490; J7030